=== PATIENT | male | born 1970 | race Caucasian/White ===

== ENCOUNTER 2017-07-08 23:02 | Emergency (ER) | payer MEDICARE, MEDICAID ==
[2017-07-08 23:36] LABS: Hematocrit 39.6 % (42.0-52.0); Hemoglobin 13.2 gm/dL (13.5-18.0); Mean Cell Volume 82.3 fl (78-100); Mean Corpuscular Hemoglobin 27.4 pg (27-31); Mean Corpuscular Hgb Conc 33.3 g/dl (32-36); Mean Platelet Volume 9.3 fl (6.0-9.5); Neutrophil % 77.2 % (42-75.0); Platelet Count 343 K/mm3 (150-450); Red Blood Count 4.81 M/mm3 (4.7-6.0); Red Cell Distribution Width 14.1 % (11.5-14.0); White Blood Count 11.6 K/mm3 (4.0-10.5)
--- NOTE | 2017-07-08 23:40 | ERNOTE ---
Medical Problem HPI - General Chief Complaint: Fever Time Seen by Provider: 07/08/17 23:23 Source: patient Exam Limitations: no limitations - Immun/Allergies/Home Medications Immunizations: IMMUNIZATION HX Immunizations Up to Date Yes History of Influenza Vaccine Yes Hx Pneumococcal Vaccination No Allergies/Adverse Reactions: Allergies levofloxacin [From Levaquin] Allergy (Intermediate, Verified 07/08/17 23:08) Shortness of Breath, itching, headache Home Medications: HOME MEDICATIONS Lisinopril [Zestril] 40 mg PO DAILY #7 tablet 03/22/15 [Last Taken 03/22/15] Glimepiride [Amaryl] 8 mg PO DAILY@0700 #30 tablet 04/01/15 [Last Taken Unknown] Fenofibrate [Lofibra] 160 mg PO DAILY 06/21/15 [Last Taken Unknown] Atorvastatin Calcium [Lipitor] 10 mg PO HS 10/23/15 [Last Taken Unknown] Tamsulosin HCl [Flomax] 0.4 mg PO DAILY 07/08/17 [Last Taken Unknown] - History of Present History Narrative: Pt has had a fever off and on for the past 2 days. It was up to 102.3 earlier today and came down with ibuprofen. He has recently been diagnosed with a colon lesion and has colonoscopy scheduled to further diagnose the lesion. His PCP told him if he had any fever he should come to the ED Timing: intermittent Severity: moderate Modifying Factors - (Improves): Present: medication Review of Systems - Review of Systems Constitutional: Present: recent illness, fever, chills, diaphoresis EYE: Present: no symptoms reported ENT: Present: nose congestion Respiratory: Absent: shortness of breath Cardiology: Absent: chest pain Gastrointestinal/Abdominal: Present: diarrhea - for months. Absent: nausea, vomiting, abdominal pain Genitourinary: Present: no symptoms reported Musculoskeletal: Present: no symptoms reported Skin: Absent: rash Neurological: Present: no symptoms reported Endocrine: Present: no symptoms reported Hematologic/Lymphatic: Present: no symptoms reported Psych: Present: no symptoms reported - Patient's Past Medical History Patient History - Medical: Diabetes Type 2, Other Patient History - Cardiac/Respiratory: Atrial Fibrillation Patient History - Cancer: Colon Patient History - Surgical Procedures: Amputation, Back Surgery, Other Patient History - Other: None - Family History Mother Family History - Medical: , No pertinent hx Family History - Cardiac/Respiratory: No pertinent hx Father Family History - Medical: , No pertinent hx Family History - Cardiac/Respiratory: No pertinent hx Sister Family History - Medical: , Diabetes Type 2 Family History - Cardiac/Respiratory: No pertinent hx Brother Family History - Medical: Diabetes Type 2 Family History - Cardiac/Respiratory: Myocardial Infarction - Social History Living Situations: home Abuse History: No History of abuse Psych History: No pertinent hx Smoking Status: Current every day smoker Have you smoked in the past 12 months: Yes Do you dip or chew tobacco: No Alcohol Use: rarely Drug Use: none - Immunizations Immunizations Up to Date: Yes Hx Pneumococcal Vaccination: No History of Influenza Vaccine: Yes Physical Exam - Physical Exam General Appearance: Present: wd/wn, alert, no apparent distress Head Exam: Present: normal inspection, no evidence of injury Eye Exam: Normal inspection: bilateral Ears, Nose, Throat: Present: nasal congestion - mild erythema Neck: Present: normal inspection, nontender Respiratory: Present: no respiratory distress, normal breath sounds, no accessory muscle use, lungs clear Cardiovascular/Chest: Present: regular rate, rhythm, no murmur, normal peripheral pulses Gastrointestinal/Abdominal: Present: normal bowel sounds, nontender, nondistended, soft, hernia - large soft direct hernia right side Back Exam: Present: normal inspection, normal range of motion Extremity Exam: Present: normal inspection, normal range of motion, no edema Neurological Exam: Present: alert, oriented, normal mood/affect Skin Exam: Present: warm/dry, skin rash - fungal looking rash on scalp Lymphatic Exam: Present: no adenopathy ED Progress - Results and Orders Patient's Lab Results:: I have reviewed the patient's lab results. Results and Orders: Laboratory Tests 07/08/17 07/08/17 23:35 23:35 WBC 11.6 H Hgb 13.2 L Hct 39.6 L Plt Count 343 Neutrophils % 77.2 H Sodium 134 Potassium 3.7 Chloride 101 BUN 11 Creatinine 0.94 Random Glucose 128 H Calcium 8.2 Total Bilirubin 0.6 AST 19 ALT 18 L Alkaline Phosphatase 71 Total Protein 7.0 Albumin 3.3 L - Vital Signs Patient's Vital Signs:: I have reviewed the patient's vital signs. Vital Signs: Vital Signs 07/08/17 23:09 Temperature 37.5 C Pulse Rate 106 H Respiratory 22 H Rate Blood Pressure 111/90 O2 Sat by Pulse 98 Oximetry - Progress/Reassessment Chief Complaint: Fever Departure Clinical Impression: Fever Qualifiers: Fever type: due to other condition Qualified Code(s): R50.81 - Fever presenting with conditions classified elsewhere Upper respiratory infection Qualifiers: URI type: acute nasopharyngitis (common cold) Qualified Code(s): J00 - Acute nasopharyngitis [common cold] - Departure Disposition: Home Follow Up Needed Condition: Good Instructions: Fever, Adult Additional Instructions: See your primary care physician as scheduled. Return to the ER if you have abdominal pain or fever that will not go down. Referrals: Pelon Quinones MD [Primary Care Provider] -
[2017-07-08 23:51] LABS: Albumin * 3.3 gm/dl (3.4-5.0); Anion Gap 13.3 mmol/L (6.8-13.8); BUN/Creatinine Ratio 11.7 (9.0-21.6); Bilirubin, Total 0.6 mg/dL (0.0-1.1); Ca. Corrected For Albumin 8.4 mg/dL (8.4-10.2); Calcium * 8.2 mg/dL (7.9-10.9); Carbon Dioxide 23.4 mmol/L (24-32.6); Potassium 3.7 mmol/L (3.4-4.6)
[2017-07-09 00:44] VITALS: BP 103/67
== END 2017-07-09 00:50 | disposition home or self-care (01) ==
LOC: ER 23:02
DX: J00 Acute nasopharyngitis [common cold] (principal); R50.81 Fever presenting with conditions classified elsewhere; Z85.038 Personal history of other malignant neoplasm of large intestine; E11.9 Type 2 diabetes mellitus without complications; I48.91 Unspecified atrial fibrillation; F17.200 Nicotine dependence, unspecified, uncomplicated

== ENCOUNTER 2017-07-14 09:49 | Day surgery (SDC) | payer MEDICARE, MEDICAID ==
[~2017-07-14 09:49] MED LIST: RINGER'S SOLUTION,LACTATED 1,000 ML IV PRN
[2017-07-14] MEDS ORDERED: RINGER'S SOLUTION,LACTATED 1,000 ML IV ONE (11:18)
[2017-07-14] MEDS ORDERED: RINGER'S SOLUTION,LACTATED 1,000 ML IV PRN (12:31)
[2017-07-14] MEDS ORDERED: oxyCODONE HCL/ACETAMINOPHEN 1 TAB TABLET PO ONE ×2 (12:43→13:00)
[2017-07-14 13:27] VITALS: BP 104/61
--- NOTE | 2017-07-14 18:19 | OR ---
Operative Report - Dictated Report Narrative: OPERATIVE REPORT DATE OF OPERATION: 07/14/2017 PREOPERATIVE DIAGNOSIS: Sigmoid colon mass on CT with possible liver metastasis POSTOPERATIVE DIAGNOSIS: Rectal neoplasm (pathology pending). Colon neoplasm at 2030 centimeters (pathology pending). Adenomatous appearing polyps 2 proximal to the colon neoplasm. OPERATION: Colonoscopy with biopsy of rectal neoplasm and neoplastic lesion at 20 cm SURGEON: Zulma Brandt MD ANESTHESIA: GERRY Craven CRNA INDICATIONS FOR PROCEDURE: The patient is a 46-year-old male referred by Dr Quinones. He had recent investigation of diarrhea which included a CT scan that demonstrated a possible apple core lesion in the sigmoid colon with a probable liver metastasis. There is a family history of possible gastrointestinal neoplasm. The patient has had no previous dedicated colon studies. The patient complains of considerable rectal pain today after the colon prep. FINDINGS: Rectal mass suspicious for neoplasm. Neoplastic lesion extending from 20-30 cm. 0.5 cm and 1 cm adenomatous appearing polyps just above the colonic neoplasm. NARRATIVE OF PROCEDURE: The patient was identified in the holding area, and prior to the administration of anesthetic, a multidisciplinary timeout was observed. With the patient in the left lateral position and after the administration of intravenous sedation, the perineum was inspected. There was no evidence of pilonidal disease or skin breakdown. The external appearance of the anus was normal. Attempted digital exam revealed marked stenosis of the anal canal with blood on the examining finger. With gradual gentle pressure the examining finger could be inserted. There was a firm mass in the rectum. The flexible fiberoptic colonoscope was inserted into the rectum which was insufflated with air. Immediately apparent was a neoplastic lesion with necrotic areas and friability. The prep was seen to be complete. The scope was advanced through the sigmoid colon, where at approximately 20 cm a neoplastic lesion was appreciated. The scope could be advanced through the lesion which was quite necrotic. The scope was then advanced slightly and 2 additional adenomatous appearing polyps were visualized in the 1015 centimeters above the mass. U it was elected not to proceed with a proximal exam due to the patient's known redundant colon and the friability both the rectal lesion and the lesion at 20 cm. The scope was withdrawn through the lesion at 20 cm which was biopsied. The area did bleed but was hemostatic by the conclusion of the procedure. The scope was then withdrawn to the rectum and retroflexed and a photograph obtained. Biopsies of the rectal lesion were obtained. The area did bleed but appeared hemostatic by the end of the procedure. As much insufflated air as possible was removed. The scope was withdrawn from the patient and the procedure terminated. The patient tolerated the anesthetic and procedure well without complication and was transferred back to the ambulatory surgery area awake and in stable condition. The patient remained stable throughout a period of postoperative observation. He denied abdominal discomfort, was able to tolerate by mouth intake, and was up without assistance. I shared the operative findings with the patient and he was given copies of the photographs which appear in the medical record. He was discharged home with instructions not to engage in hazardous activity today, but may resume normal activity tomorrow, and advance diet as tolerated. He is to continue those medications as listed in the history and physical exam. I explained that the findings were suspicious both for a rectal cancer and a cancer in the sigmoid colon. He stated he would be okay if I contacted him with the results by phone given the fact that we both suspect this is cancer. I explained that he will require the expertise of the [facility] for treatment and he agreed that I should make a referral when the pathology report is available. I made arrangements to contact him with the biopsy reports and will make additional recommendations for treatment and follow-up based upon those results. Reviewed and electronically signed
== END 2017-07-14 09:50 | disposition home or self-care (01) ==
LOC: AMB 09:49
PROVIDERS: ATTEND Surgery
PROC: 0DBE8ZX Excision of Large Intestine, Via Natural or Artificial Opening Endoscopic, Diagnostic (ICD-10-PCS; 2017-07-14)
PROC: 0DBP8ZX Excision of Rectum, Via Natural or Artificial Opening Endoscopic, Diagnostic (ICD-10-PCS; principal; 2017-07-14 10:45)
DX: Z12.11 Encounter for screening for malignant neoplasm of colon (principal); D37.4 Neoplasm of uncertain behavior of colon; D37.5 Neoplasm of uncertain behavior of rectum; I10 Essential (primary) hypertension; E11.9 Type 2 diabetes mellitus without complications; E78.5 Hyperlipidemia, unspecified; E66.9 Obesity, unspecified; Z68.25 Body mass index [BMI] 25.0-25.9, adult; F17.200 Nicotine dependence, unspecified, uncomplicated

== ENCOUNTER 2019-08-22 11:20 | Inpatient (IN) ==
[2019-08-22] MEDS ORDERED: ENOXAPARIN SODIUM 40 MG/0.4 ML SYRG SC SCH (12:45)
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
[2019-08-22 14:56] VITALS: BP 88/57
[2019-08-22] MEDS: HYDROmorphone HCL 2 MG TABLET PO PRN ×2 (15:03→23:47)
[2019-08-23] MEDS: HYDROmorphone HCL 2 MG TABLET PO PRN ×3 (08:40→15:29)
--- NOTE | 2019-08-23 12:02 | PN ---
Subjective - Date and Time Seen Date: 08/23/19 Time: 11:57 Subjective Narrative: Patient is having pain of his LLE- numbness and tingling. He does not want to be on IV meds for his pain/comfort care for now and prefers to continue with his oral home meds. Objective - Review of Systems Generalized/Overall Review: Reports: Weakness EENTM: Denies: Blurred Vision Respiratory: Denies: Cough, Shortness of Breath Cardiac: Denies: Chest Pain, Edema, Palpitations Abdominal: Denies: Nausea, Vomiting, Abdominal Pain Genitourinary Symptoms: Denies: Urgency, Frequency Musculoskeletal Complaints: Reports: Joint Pain, Back Pain Neurological: Denies: Headache Skin: Denies: Lesions, Rash Misc: All systems neg except as marked - Vitals Vitals: Last Vital Signs Temp 36.9 C 08/22/19 14:42 Pulse 96 08/22/19 14:42 Resp 20 08/22/19 14:42 BP 88/57 L 08/22/19 14:42 Pulse Ox 96 08/22/19 14:42 - Exam Exam Narrative: P.E. deferred Assessment/Plan Plan Narrative: Zeb was admitted for acute respite care. He is on Hospice care for metatastic rectal adenocarcinoma. He is ok to to have gabapentin added to his pain meds. - Problems/Diagnosis (1) Metastatic adenocarcinoma to colorectal region Problem: Acute (2) Diabetes mellitus, type 2 Problem: Chronic Qualifiers: (3) HTN (hypertension) Problem: Chronic Qualifiers: (4) HLD (hyperlipidemia) Problem: Chronic Qualifiers: (5) Neuropathic pain Problem: Acute
[2019-08-23] MEDS ORDERED: ACETAMINOPHEN 325 MG TABLET PO PRN (12:03)
[2019-08-23] MEDS ORDERED: ONDANSETRON HCL 4 MG TABLET PO PRN (12:03)
[2019-08-23] MEDS: GABAPENTIN 300 MG CAPSULE PO SCH ×2 (12:12→21:35)
[2019-08-23] MEDS: LORazepam 1 MG TABLET PO PRN (15:20)
[2019-08-24] MEDS: GABAPENTIN 300 MG CAPSULE PO SCH ×3 (05:48→20:44)
[2019-08-24] MEDS: HYDROmorphone HCL 2 MG TABLET PO PRN ×3 (05:49→19:05)
[2019-08-24] MEDS ORDERED: BENZOCAINE/MENTHOL 16 EACH BOX MM PRN (12:12)
--- NOTE | 2019-08-24 12:14 | PN ---
Subjective - Date and Time Seen Date: 08/24/19 Time: 12:06 Subjective Narrative: Zeb is eating lunch - Mechanical soft diet. "i feel like have a frog in my throat." Objective - Review of Systems Generalized/Overall Review: Reports: Weakness. Denies: Chills, Fever EENTM: Denies: Blurred Vision Respiratory: Denies: Cough, Shortness of Breath, Orthopnea Cardiac: Denies: Chest Pain, Edema, Palpitations Abdominal: Denies: Nausea, Vomiting Genitourinary Symptoms: Denies: Urgency, Hematuria Musculoskeletal Complaints: Reports: Joint Pain - controlled, Back Pain - controlled Neurological: Denies: Headache Skin: Reports: Change in Color. Denies: Lesions, Rash - Vitals Vitals: Last Vital Signs Temp 36.9 C 08/22/19 14:42 Pulse 96 08/22/19 14:42 Resp 20 08/22/19 14:42 BP 88/57 L 08/22/19 14:42 Pulse Ox 96 08/22/19 14:42 - Exam Exam Narrative: patient prefers not to be examined. Constitutional: Present: Alert, Oriented x3 Assessment/Plan Plan Narrative: Zeb is in acute respite care from hospice. He is eating his mechanical soft diet for lunch. He says he is going to eat it all. He says he does feel like there is a frog in his throat. His voice does sound hoarse. He denies coughing or phlegm production. The gabapentin is helping with his neuropathy. - Problems/Diagnosis (1) Metastatic adenocarcinoma to colorectal region Problem: Acute (2) Diabetes mellitus, type 2 Problem: Chronic Qualifiers: (3) HTN (hypertension) Problem: Chronic Qualifiers: (4) HLD (hyperlipidemia) Problem: Chronic Qualifiers: (5) Neuropathic pain Problem: Acute
[2019-08-24] MEDS: LORazepam 1 MG TABLET PO PRN (19:05)
[2019-08-25] MEDS: HYDROmorphone HCL 2 MG TABLET PO PRN ×4 (01:02→17:18)
[2019-08-25] MEDS: GABAPENTIN 300 MG CAPSULE PO SCH ×3 (04:53→20:10)
[2019-08-26] MEDS: HYDROmorphone HCL 2 MG TABLET PO PRN ×3 (02:29→19:27)
[2019-08-26] MEDS: GABAPENTIN 300 MG CAPSULE PO SCH ×3 (04:57→21:17)
[2019-08-27] MEDS: HYDROmorphone HCL 2 MG TABLET PO PRN ×4 (01:13→19:27)
[2019-08-27] MEDS: GABAPENTIN 300 MG CAPSULE PO SCH ×3 (05:10→19:27)
[2019-08-28] MEDS: HYDROmorphone HCL 2 MG TABLET PO PRN ×4 (00:13→12:18)
[2019-08-28] MEDS: GABAPENTIN 300 MG CAPSULE PO SCH ×2 (05:00→12:17)
--- NOTE | 2019-08-28 13:11 | DS ---
Date of Discharge:: 08/28/19 Description of Stay: 49-year-old male admitted for hospice respite care due to family conflict that made his previous hospice arrangements unsafe. Patient was previously living with his longtime girlfriend but due to issues in the home was no longer able to stay there. In the meantime, [facility] agreed to provide respite care until another residence location could be determined and arranged. After the hard work of the caseworkers we are able to secure residents with his with his brother, therefore patient is being discharged with all of his routine medications and orders to continue receiving hospice care at his brother's house. Patient is to be followed up by his PCP. Procedures Performed: none Discharge Location: Home Disposition: Hospice Home Home Health Agency: [facility] Condition: Stable Face to Face Encounter completed per CMS Guidelines: No Discharge Activity: Activity as tolerated Discharge Diet: General/regular food Referrals: Pelon Quinones MD [Primary Care Provider] - Prescriptions (Any new or edited meds): HYDROmorphone HCL [Dilaudid] 8 mg PO Q3H 6 Days #50 tab Transmission Status: Received by [place], [place] oxyCODONE HCL [Oxycontin] 30 mg PO BID #20 tab.er.12h Transmission Status: Received by [place], [place] Ondansetron HCl [Zofran] 4 mg PO Q6H PRN 6 Days #40 tab PRN Reason: Nausea And Vomiting Transmission Status: Pending to [place], [place] Complete Home Medications List: Complete Home Medication List: lorazepam 1 mg tablet 1 mg PO QID PRN #56 tab 08/15/19 HYDROmorphone HCL [Dilaudid] 8 mg PO Q3H 6 Days #50 tab 08/28/19 Ondansetron HCl [Zofran] 4 mg PO Q6H PRN 6 Days #40 tab 08/28/19 oxyCODONE HCL [Oxycontin] 30 mg PO BID #20 tab.er.12h 08/28/19
== END 2019-08-28 15:00 | disposition hospice, home (50) | DRG 375 ==
LOC: MS 11:20
PROVIDERS: ADMIT Internal Medicine; ATTEND Internal Medicine
CPT/HCPCS: 87081